=== PATIENT | male | born 1990 | race Caucasian/White ===

== ENCOUNTER 2016-09-19 20:47 | Emergency (ER) | payer MEDICAID ==
[~2016-09-19] VITALS: Ht 180.3 cm; Wt 112.0 kg
[~2016-09-19 20:47] MED LIST: TOPAMAX100 MG PO
[2016-09-19 21:13] VITALS: BP 133/90
--- NOTE | 2016-09-19 21:48 | NUR ---
AMBULATED TO ER BED 2
--- NOTE | 2016-09-19 21:53 | NUR ---
26Y M BIB SELF C/O BUMP IN LEFT POSTERIOR OF THE HEAD . PT STATES HE NOTICED IT THERE ABOUT 3 MONTHS AGO WITH INTERRMITENT PAIN, THAT HAS GOTTEN PROGRESSIVELY WORSE MAKING IT DIFFICULT TO TURN HEAD FROM SIDE TO SIDE . PT DENIES N/V/D; SKIN IS PINK/WARM/DRY; AAOX4 WITH EVEN AND STEADY GAIT; LUNGS CLEAR BL; HR EVEN AND REGULAR; PT DENIES ANY FEVER, CP, SOB, OR COUGH AT THIS TIME; PATIENT STATES PAIN OF 8/10 AT THIS TIME; VSS; PATIENT POSITIONED FOR COMFORT; HOB ELEVATED; BEDRAILS UP X2; BED DOWN. ER MD MADE AWARE OF PT STATUS.
--- NOTE | 2016-09-19 22:48 | NUR ---
Patient being evaluated by physician DR BORREGO at bedside.
[2016-09-19] MEDS ORDERED: LIDOCAINE 1% 500 MG/50 ML VIAL INJ ONE (22:55)
[2016-09-19 23:53] VITALS: BP 122/78
--- NOTE | 2016-09-19 23:53 | NUR ---
Patient discharged with v/s stable. Written and verbal after care instructions given and explained. Patient alert, oriented and verbalized understanding of instructions. Ambulatory with steady gait. All questions addressed prior to discharge. ID band removed. Patient advised to follow up with PMD. Rx of CLINDAGEL 1% given. Patient educated on indication of medication including possible reaction and side effects. Opportunity to ask questions provided and answered.
== END 2016-09-19 23:53 | disposition home or self-care (01) ==
LOC: MED 20:47
DX: L72.3 Sebaceous cyst (principal); Z88.1 Allergy status to other antibiotic agents; Z88.2 Allergy status to sulfonamides; Z88.8 Allergy status to other drugs, medicaments and biological substances
CPT/HCPCS: 10060; 99283; J2001